=== PATIENT | male | born 1990 | race Two or more races ===

== ENCOUNTER 2025-07-05 10:45 | Emergency (ER) | payer MEDICAID, OTHER ==
[~2025-07-05] VITALS: Ht 281.9 cm; Wt 83.6 kg
[2025-07-05 10:49] VITALS: BP 130/84; PULSE 94; RESP 16; TEMP 97.8; O2SAT 98
== END 2025-07-05 14:51 | disposition left against medical advice (07) ==
LOC: ER 10:45
DX: M79.602 Pain in left arm (principal); Z53.21 Procedure and treatment not carried out due to patient leaving prior to being seen by health care provider